=== PATIENT | male | born 1985 | race Two or more races ===

== ENCOUNTER 2021-03-24 09:40 | Outpatient (CLI) | payer SELFPAY | END 2021-03-24 09:41 | disposition critical access hospital (66) | LOC: EMS 09:40 | DX: S71.112A Laceration without foreign body, left thigh, initial encounter (principal); W29.8XXA Contact with other powered hand tools and household machinery, initial encounter; Y93.89 Activity, other specified; Y92.89 Other specified places as the place of occurrence of the external cause; Y99.0 Civilian activity done for income or pay | CPT/HCPCS: A0425; A0429 ==

== ENCOUNTER 2021-03-24 10:05 | Emergency (ER) | payer SELFPAY ==
[2021-03-24] MEDS ORDERED: HYDROmorphone 1 MG/ML CARPUJECT IVP STA ×2 (10:35→12:02)
[2021-03-24] MEDS ORDERED: SODIUM CHLORIDE 0.9% 1,000 ML IV STA (10:35)
[2021-03-24] MEDS ORDERED: ONDANSETRON 4 MG/2 ML VIAL IVP STA (10:35)
[2021-03-24] MEDS ORDERED: ceFAZolin 1 GM in SODIUM CHLORIDE 0.9% MINIBAG 100 ML IV STA (10:36)
[2021-03-24] MEDS ORDERED: BUPIVACAINE 0.5% PF 30 ML VIAL SUBQ ONE (12:03)
[2021-03-24] MEDS ORDERED: BUPIVACAINE 0.5% PF 10 ML VIAL ONE (12:23)
[2021-03-24] MEDS ORDERED: BUPIVACAINE 0.5% PF 10 ML VIAL ID ONE (13:00)
[2021-03-24] MEDS ORDERED: BACITRACIN ZINC OINT 1 PACKET TOP STA (13:16)
--- NOTE | 2021-03-24 13:21 | ED Physician Documentation ---
PD HPI SKIN - Stated complaint Stated Complaint: LEG WOUND - Chief complaint Chief Complaint: Laceration - History obtained from History obtained from: Patient, EMS - Additional information Additional information: PT is brought to the ED for CC of L thigh laceration after injury with concrete cutter. Pt states he was using the cutter when the device slipped and struck his L thigh, cutting through his pants and lacerating his thigh. No limitation of movement, except secondary to pain. No numbness since tourniquet has been removed. No other injuries. Last tetanus 3 y/a. Review of Systems Ten Systems: 10 systems reviewed and negative Constitutional: reports: Reviewed and negative Eyes: reports: Reviewed and negative Ears: reports: Reviewed and negative Nose: reports: Reviewed and negative Throat: reports: Reviewed and negative Cardiac: reports: Reviewed and negative Respiratory: reports: Reviewed and negative GI: reports: Reviewed and negative : reports: Reviewed and negative Skin: reports: Laceration (s) Musculoskeletal: reports: Reviewed and negative Neurologic: reports: Reviewed and negative Psychiatric: reports: Reviewed and negative Endocrine: reports: Reviewed and negative Immunocompromised: reports: Reviewed and negative PD PAST MEDICAL HISTORY - Past Medical History Past Medical History: No - Past Surgical History Past Surgical History: No - Present Medications Home Medications: Ambulatory Orders Medication Instructions Recorded Confirmed HYDROcod/ACETAM 5/325 [[place] 5/325] 1 - 2 tablet PO Q6H PRN #25 tablet 03/24/21 cephALEXin [Keflex] 500 mg PO Q6H #28 03/24/21 - Allergies Allergies/Adverse Reactions: Allergies Allergy/AdvReac Type Severity Reaction Status Date / Time No Known Drug Allergies Allergy Verified 03/24/21 10:15 - Social History Does the pt smoke?: No Smoking Status: Never smoker Does the pt drink ETOH?: No Does the pt have substance abuse?: No - Immunizations Immunizations are current?: Yes - POLST Patient has POLST: No PD ED PE NORMAL - Vitals Vital signs reviewed: Yes - General General: Alert and oriented X 3, No acute distress, Well developed/nourished - HEENT HEENT: Atraumatic, PERRL, EOMI, Moist mucous membranes - Neck Neck: Supple, no meningeal sign - Cardiac Cardiac: RRR, No murmur, Strong equal pulses - Respiratory Respiratory: No respiratory distress, Clear bilaterally - Abdomen Abdomen: Normal bowel sounds, Soft, Non tender, Non distended - Derm Derm: Normal color, Warm and dry, No rash, Other (12 cm curvilinear, rough- edged, 1-2 cm thick flap laceration extending along subcutaneous tissue plane of mid-anteromedial thigh. 2 cm wide x 2 cm deep lac of quadriceps muscle. Minimal active bleeding. Mild particulate FB.) - Extremities Extremities: No deformity, No edema - Neuro Neuro: Alert and oriented X 3, brass plater 2-12 intact, No motor deficit, No sensory deficit, Normal speech - Psych Psych: Normal mood, Normal affect Results - Vitals Vitals: Oxygen O2 Source Room air Procedures - Laceration (location) L anterior thigh Length in cm: 12 Wound type: Linear, Curved, Into subcut fat, Into muscle (small portion), Contaminated (particulate matter, mild) Neurovascular status: Sensory intact, Motor intact, Vascular intact Tendon involvement: Tendon intact Anesthesia: Marcaine 0.5% Wound preparation: Hibiclens, Irrigated copiously NS, Wound explored, To the base, FB identified, FB removed Deep layer closure: Vicryl, size #-0 - enter number (4.0), # sutures - enter number (4) Skin layer closure: Nylon, Interrupted, Size #-0 - enter number (4.0), Sutures - enter # (24) Other: Patient tolerated well, No complications, Neurovascular intact, Dressing applied, Tetanus UTD PD MEDICAL DECISION MAKING - ED course Complexity details: considered differential, d/w patient ED course: Pt was treated with Dilaudid and Ancef in the ED, and wound was repaired as above. Pt was given wound care instructions and instructions regarding timeline for wound check and suture removal. He has been given prescriptions for antibiotics and analgesia. We have discussed the usual indications for return. Departure - Departure Disposition: 01 Home, Self Care Clinical Impression: Laceration Condition: Stable Instructions: ED Laceration All Prescriptions: cephALEXin [Keflex] 500 mg PO Q6H #28 HYDROcod/ACETAM 5/325 [[place] 5/325] 1 - 2 tablet PO Q6H PRN #25 tablet PRN Reason: Pain Comments: Your wound has been thoroughly cleaned today. It has been repaired with 4 stitches inside the wound, and 24 stitches on the outside of the wound. The Wound should be checked in about 10 days to see if the outside stitches are ready to be taken out. You may go to [facility] for this, or you can go to urgent care or return to the emergency department if you need to. Please keep the wound clean and generally dry. You may allow water to run over the wound, but please do not rub, scrub, or immerse the wound in water. This is to prevent Infection while the stitches are in place. If you notice redness or swelling spreading progressively away from the wound, or if you notice pus draining from the wound, you should have it rechecked. You will most likely have quite a bit of soreness and swelling in the next couple of weeks. You also probably noticed bruising that spreads down your leg from the wound. This is normal and will go away on its own. Please use ice packs To help with the swelling and discomfort. You may also use crutches to assist in walking if your leg is too sore. It is important that you do move the leg around to help prevent scarring inside and also to increase circulation and get rid of the swelling. Just do not do any strenuous activities involving your leg or activities that involve a lot of stretching of the wounded area. You should take the antibiotics as directed until gone. Please take the pain medication as needed. Discharge Date/Time: 03/24/21 14:12
[2021-03-24 13:56] VITALS: BP 140/89
== END 2021-03-24 14:12 | disposition home or self-care (01) ==
LOC: ED 10:05
DX: S71.122A Laceration with foreign body, left thigh, initial encounter (principal); W29.3XXA Contact with powered garden and outdoor hand tools and machinery, initial encounter
CPT/HCPCS: 12034; 96365; 96366; 96375; 96376; 99283; A9270; J1170